=== PATIENT | male | born 1960 | race African-American/Black ===

== ENCOUNTER 2016-12-18 10:05 | Inpatient (IN) | payer OTHER ==
[2016-12-18 14:03] VITALS: BMI 21.1
--- NOTE | 2016-12-18 14:57 | HP ---
CIWA Score - CIWA Score Nausea/Vomitin Muscle Tremors: 3 Anxiety: 3 Agitation: 3 Paroxysmal Sweats: 1-Minimal Palms Moist Orientation: 0-Oriented Tacttile Disturbances: 2-Mild Itch/Numbness/Burn Auditory Disturbances: 2-Mild Harshness/Frighten Visual Disturbances: 2-Mild Sensitivity Headache: 2-Mild CIWA-Ar Total Score: 21 Admission ROS BHS - HPI Chief Complaint: i need help to stop drinking alcohol and cocaine Allergies/Adverse Reactions: Allergies Allergy/AdvReac Type Severity Reaction Status Date / Time No Known Allergies Allergy Verified 12/18/16 14:52 History of Present Illness: this 56 years old male with alcohol and cocaine dependence,seeking help for detox,last treatment 03/15 [facility] seizure disorder last 2015 taking truvada for prevention exposure to partner longest time of sobriety 3 years nicotine dependence surgery for head injury in 1978 right Exam Limitations: No Limitations - Ebola screening Have you traveled outside of the country in the last 21 days: No Have you been sick,other than usual withdrawal symptoms: No - Review of Systems Constitutional: Loss of Appetite, Night Sweats, Changes in sleep, Weakness, Unintentional Wgt. Loss EENT: reports: Nose Congestion, Other (haed injury right s/p surgery) Respiratory: reports: No Symptoms reported Cardiac: reports: No Symptoms Reported GI: reports: Diarrhea, Nausea, Vomiting, Abdominal cramping : reports: No Symptoms Reported Musculoskeletal: reports: Back Pain, Muscle Pain Integumentary: reports: Dryness Neuro: reports: Headache, Tremors Endocrine: reports: No Symptoms Reported Hematology: reports: No Symptoms Reported Psychiatric: reports: Anxious, Depressed Patient History - Patient Medical History Hx Anemia: No Hx Asthma: No Hx Chronic Obstructive Pulmonary Disease (COPD): No Hx Cancer: No Hx Cardiac Disorders: No Hx Congestive Heart Failure: No Hx Hypertension: No Hx Hypercholesterolemia: No Hx Pacemaker: No HX Cerebrovascular Accident: No Hx Seizures: Yes (last in 2015) Hx Dementia: No Hx Diabetes: No Hx Gastrointestinal Disorders: No Hx Liver Disease: No Hx Genitourinary Disorders: No Hx Sexually Transmitted Disorders: No Hx Renal Disease (ESRD): No Hx Thyroid Disease: No Hx Human Immunodeficiency Virus (HIV): No (last tested in 09/14 negative) Hx Hepatitis C: No Hx Depression: Yes (anxiety) Hx Suicide Attempt: Yes (cutter) Hx Bipolar Disorder: No Hx Schizophrenia: No Other Medical History: no suiidal,no homicidal,taking truvada for prevention exposure,arthritis - Patient Surgical History Hx Neurologic Surgery: Yes (in 1975 post head injury ) - PPD History Previous Implant?: Yes Documented Results: Positive w/o proof Implanted On Prior [facility] Admission?: No PPD to be Administered?: No - Smoking Cessation Smoking history: Current every day smoker Have you smoked in the past 12 months: Yes Aproximately how many cigarettes per day: 5 Cigars Per Day: 0 Hx Chewing Tobacco Use: No Initiated information on smoking cessation: Yes 'Breaking Loose' booklet given: 12/18/16 - Substance & Tx. History Hx Alcohol Use: Yes Hx Substance Use: Yes Substance Use Type: Alcohol, Cocaine Hx Substance Use Treatment: Yes (02/13 [facility]) Family Disease History - Family Disease History Family Disease History: Other: Father (alcohol,), Mother (alcohol, ) Admission Physical Exam S - Vital Signs Vital Signs: Vital Signs - 24 hr 12/18/16 14:00 Temperature 97.1 F L Pulse Rate 64 Respiratory 20 Rate Blood Pressure 115/69 - Physical General Appearance: Yes: Moderate Distress, Tremorous, Irritable, Sweating, Anxious HEENTM: Yes: Normal ENT Inspection, MARY, Pharynx Normal (hearng loss left), Other (s/p surgery right post head injury in 1975 scar in right parietal area) Respiratory: Yes: Lungs Clear, Normal Breath Sounds, No Respiratory Distress Neck: Yes: Within Normal Limits, Supple, Trachea in good position Breast: Yes: Within Normal Limits Cardiology: Yes: Within Normal Limits, Regular Rhythm, Regular Rate, S1, S2 Abdominal: Yes: Within Normal Limits, Normal Bowel Sounds, Non Tender, Flat, Soft Genitourinary: Yes: Within Normal Limits Back: Yes: Muscle Spasm Extremities: Yes: Within Normal Limits, Normal Range of Motion, Tremors Neurological: Yes: optimization engineer II-XII NML intact, Alert, Motor Strength 5/5, Other ( scar in right parietal area) Integumentary: Yes: Dry Lymphatic: Yes: Within Normal Limits - Diagnostic (1) Alcohol dependence with uncomplicated withdrawal Current Visit: Yes Status: Acute (2) Cocaine dependence Current Visit: Yes Status: Acute (3) Nicotine dependence Current Visit: Yes Status: Acute (4) Head injury Current Visit: Yes Status: Acute (5) H/O craniotomy Current Visit: Yes Status: Acute (6) Seizure disorder Current Visit: Yes Status: Acute (7) Weight loss Current Visit: Yes Status: Acute (8) Positive PPD, treated Current Visit: Yes Status: Acute (9) Anxiety and depression Current Visit: Yes Status: Acute (10) Arthritis of right knee Current Visit: Yes Status: Acute Cleared for Admission BHS - Detox or Rehab S Level of Care: Medically Managed (patient stated his hiv is negative last tested in 09/14 but takng truvada 1 tab po daily for preventive for exposure) Detox Regimen/Protocol: Librium BHS Breath Alcohol Content Breath Alcohol Content: 0 Urine Drug Screen - Results Drug Screen Negative: No Urine Drug Screen Results: KELLY-Cocaine, BAR-Barbiturates
[2016-12-18] MEDS ORDERED: P-EPHED 60MG/TRIPROLIDI 2.5MG TABLET PO PRN (15:28)
[2016-12-18] MEDS ORDERED: MENTHOL/PHENOL 1 EACH UD MM PRN (15:28)
[2016-12-18] MEDS ORDERED: LOPERAMIDE HCL 2 MG CAPSULE PO PRN (15:28)
[2016-12-18] MEDS ORDERED: MAG HYDROX/AL HYDROX/SIMETH 30 ML UNIT-DOSE CUP PO PRN (15:28)
[2016-12-18] MEDS ORDERED: diphenhydrAMINE HCL 50 MG CAPSULE PO PRN (15:28)
[2016-12-18] MEDS ORDERED: MAGNESIUM CITRATE 300 ML BOTTLE PO PRN (15:28)
[2016-12-18] MEDS ORDERED: ACETAMINOPHEN 325 MG TABLET (FP) PO PRN (15:28)
[2016-12-18] MEDS ORDERED: guaiFENesin/D-METHORPHAN HB 10 ML UNIT-DOSE CUPS PO PRN (15:28)
[2016-12-18] MEDS ORDERED: chlordiazePOXIDE HCL 25 MG CAPSULE PO PRN (15:28)
[2016-12-18] MEDS ORDERED: MAGNESIUM HYDROX 2400MG/30ML ORAL SUSPENSION 30 ML CUP PO PRN (15:28)
[2016-12-18] MEDS ORDERED: hydrOXYzine PAMOATE 25 MG CAPSULE (FP) PO PRN (15:28)
[2016-12-18] MEDS ORDERED: IBUPROFEN 400 MG TABLET (FP) PO PRN (15:28)
[2016-12-18] MEDS ORDERED: chlordiazePOXIDE HCL 25 MG CAPSULE PO ONE (16:15)
[2016-12-18] MEDS: NICOTINE 21 MG/24 HOURS TOPICAL PATCH TD SCH (17:02)
[2016-12-18] MEDS: chlordiazePOXIDE HCL 25 MG CAPSULE PO SCH ×2 (17:03→22:09)
[2016-12-18 20:59] LABS: HIV 1 & 2 AB NEGATIVE; HIV 1 AGp24 NEGATIVE
[2016-12-18] MEDS: PHENYTOIN NA EXTENDED 100 MG CAPSULE (FP) PO SCH (22:08)
[2016-12-18] MEDS: THIAMINE HCL 100 MG TABLET (FP) PO SCH (22:08)
[2016-12-18 22:44] LABS: URINE APPEARANCE CLEAR; URINE BILIRUBIN NEGATIVE (NEGATIVE); URINE BLOOD NEGATIVE (NEGATIVE); URINE COLOR LTYELLOW; URINE GLUCOSE (UA) NEGATIVE (NEGATIVE); URINE KETONE NEGATIVE (NEGATIVE); URINE LEUK ESTERASE NEGATIVE (NEGATIVE); URINE NITRITE NEGATIVE (NEGATIVE); URINE PROTEIN NEGATIVE (NEGATIVE); URINE UROBILINOGEN NEGATIVE mg/dL (0.2-1.0)
[2016-12-19] MEDS: PHENYTOIN NA EXTENDED 100 MG CAPSULE (FP) PO SCH ×3 (05:44→22:55)
[2016-12-19] MEDS: chlordiazePOXIDE HCL 25 MG CAPSULE PO SCH ×4 (06:02→22:55)
[2016-12-19] MEDS: PRENATAL VITAMINS W/ FOLIC ACID TABLET (FP) PO SCH (10:04)
[2016-12-19] MEDS: EMTRICITABINE 200MG/TENOFOVIR 300MG PO SCH (10:06)
[2016-12-19] MEDS: NICOTINE 21 MG/24 HOURS TOPICAL PATCH TD SCH (10:06)
[2016-12-19 11:06] LABS: MCH 33.8 pg (25.7-33.7); MCHC 33.5 g/dl (32.0-35.9); MEAN CELL VOLUME 100.8 fl (80-96); PLATELET COUNT 177 K/MM3 (134-434); WHITE BLOOD COUNT 4.5 K/mm3 (4.0-10.0)
--- NOTE | 2016-12-19 11:06 | CONSULT ---
[facility] Psychiatric Consult - Data Date of interview: 12/19/16 Admission source: [facility] Identifying data: First admission to [facility] for this 56 y/o AA male seeking deox treatment on for alcohol,marijuana and crack dependence.Patient is single,a father of two,domiciled,unemployed and supported on Public Assistance. Substance Abuse History: Patient reports an extensive history of substance abuse from age 10 (alcohol and marijuana) and age 19 (crack/cocaine).Smokes five cigarettes daily.Last used these substances on 12/18/16. Medical History: HIV infection,arthritis,seizure disorder (on dilantin),head trauma in the past (which warranted a craniotomy),history of positive PPD ( treated) and hearing impediment (left ear). Psychiatric History: Patient admits to a history of " a few " psychiatric hospitalizations.Known to [facility] and [facility].Early onset of psychiatric disturbances (behavioral dyscontrol and learning disability).No longer remembers psychotropic medications utilized for management.Lost to OPD care for years,in spite of an admission to [facility] two years ago.Diagnosis uncertain (no recall).Mr Mark indicates that his education extends to the 11 th grade (special classes) .Patient reports a remote history of suicde attempts via " cutting ". Physical/Sexual Abuse/Trauma History: Patient denies. Additional Comment: Urine Drug Screen Results: KELLY-Cocaine, BAR- Barbiturates.Noted. Mental Status Exam - Mental Status Exam Alert and Oriented to: Time, Place, Person Cognitive Function: Good Patient Appearance: Unkempt, Disheveled Mood: Hopeful, Euthymic Affect: Appropriate, Normal Range Patient Behavior: Fatigued, Appropriate, Cooperative (friendly,well-mannered) Speech Pattern: Clear, Appropriate Voice Loudness: Normal Thought Process: Intact, Goal Oriented Thought Disorder: Not Present Hallucinations: Denies Suicidal Ideation: Denies Homicidal Ideation: Denies Insight/Judgement: Poor Sleep: Fair Appetite: Good Muscle strength/Tone: Normal Gait/Station: Normal Psychiatric Findings - Problem List ([place] 1, 2,3) (1) Alcohol dependence with uncomplicated withdrawal Current Visit: Yes Status: Acute (2) Cocaine dependence Current Visit: Yes Status: Acute (3) Nicotine dependence Current Visit: Yes Status: Acute (4) Arthritis of right knee Current Visit: Yes Status: Chronic (5) H/O craniotomy Current Visit: No Status: Resolved (6) Positive PPD, treated Current Visit: No Status: Resolved - Initial Treatment Plan Initial Treatment Plan: Psychoeducation.Detoxification.Seizures precautions.Observation.
[2016-12-19 11:11] LABS: ALBUMIN 3.9 g/dl (3.4-5.0); ALK PHOS 119 U/L (45-117); ANION GAP 7 (8-16); BILIRUBIN,TOTAL 0.3 mg/dL (0.2-1.0); CO2 29 mmol/L (21-32); CREATININE 1.4 mg/dL (0.7-1.3); GLUCOSE,RANDOM 110 mg/dL (74-106); SGOT/AST 25 U/L (15-37); SGPT/ALT 25 U/L (12-78); TOT PROT 7.6 g/dl (6.4-8.2)
--- NOTE | 2016-12-19 13:36 | PN ---
[facility] CIWA - CIWA Score Nausea/Vomitin-No Nausea/No Vomiting Muscle Tremors: 4-Moderate,w/Arms Extend Anxiety: 4-Mod. Anxious/Guarded Agitation: 3 Paroxysmal Sweats: 3 Orientation: 0-Oriented Tacttile Disturbances: 0-None Auditory Disturbances: 2-Mild Harshness/Frighten Visual Disturbances: 2-Mild Sensitivity Headache: 0-None Present CIWA-Ar Total Score: 18 S Progress Note (SOAP) Subjective: Tremors, Sweating, Interrupted sleep. Objective: PT. A & O X 3. NO ACUTE DISTRESS. 12/19/16 13:33 Vital Signs Temperature 96.5 F L 12/19/16 10:00 Pulse Rate 64 12/19/16 10:00 Respiratory Rate 18 12/19/16 10:00 Blood Pressure 91/64 12/19/16 10:00 O2 Sat by Pulse Oximetry (%) Laboratory Tests 12/18/16 12/18/16 12/19/16 14:50 16:15 06:00 WBC 4.5 RBC 4.28 Hgb 14.5 Hct 43.2 MCV 100.8 H MCH 33.8 H MCHC 33.5 RDW 14.0 Plt Count 177 MPV 9.0 Sodium Potassium Chloride Carbon Dioxide Anion Gap BUN Creatinine Creat Clearance w eGFR Random Glucose Calcium Total Bilirubin AST ALT Alkaline Phosphatase Total Protein Albumin Urine Color Ltyellow Urine Appearance Clear Urine pH 5.0 Ur Specific [place] 1.025 Urine Protein Negative Urine Glucose (UA) Negative Urine Ketones Negative Urine Blood Negative Urine Nitrite Negative Urine Bilirubin Negative Urine Urobilinogen Negative Ur Leukocyte Esterase Negative HIV 1&2 Antibody Screen Negative HIV P24 Antigen Negative 12/19/16 06:00 WBC RBC Hgb Hct MCV MCH MCHC RDW Plt Count MPV Sodium 142 Potassium 4.1 Chloride 106 Carbon Dioxide 29 Anion Gap 7 L BUN 20 H Creatinine 1.4 H Creat Clearance w eGFR 52.05 Random Glucose 110 H Calcium 9.0 Total Bilirubin 0.3 AST 25 ALT 25 Alkaline Phosphatase 119 H Total Protein 7.6 Albumin 3.9 Urine Color Urine Appearance Urine pH Ur Specific [place] Urine Protein Urine Glucose (UA) Urine Ketones Urine Blood Urine Nitrite Urine Bilirubin Urine Urobilinogen Ur Leukocyte Esterase HIV 1&2 Antibody Screen HIV P24 Antigen LABS NOTED. RPR RESULT PENDING. 12/19/16 13:35 Assessment: 12/19/16 13:34 WITHDRAWAL SYMPTOMS. Plan: CONTINUE DETOX. D/C MAGNESIUM-CONTAINING MEDS. DUE TO ABNORMAL ADMISSION RENAL LAB VALUES.
[2016-12-19] MEDS: THIAMINE HCL 100 MG TABLET (FP) PO SCH (22:56)
[2016-12-20] MEDS: chlordiazePOXIDE HCL 25 MG CAPSULE PO SCH ×2 (05:27→10:18)
[2016-12-20] MEDS: PHENYTOIN NA EXTENDED 100 MG CAPSULE (FP) PO SCH ×3 (05:27→22:06)
[2016-12-20] MEDS: EMTRICITABINE 200MG/TENOFOVIR 300MG PO SCH (10:16)
[2016-12-20] MEDS: PRENATAL VITAMINS W/ FOLIC ACID TABLET (FP) PO SCH (10:16)
[2016-12-20] MEDS: NICOTINE 21 MG/24 HOURS TOPICAL PATCH TD SCH (10:16)
--- NOTE | 2016-12-20 13:26 | PN ---
[facility] CIWA - CIWA Score Nausea/Vomitin Muscle Tremors: 4-Moderate,w/Arms Extend Anxiety: 3 Agitation: 3 Paroxysmal Sweats: No Perspiration Orientation: 0-Oriented Tacttile Disturbances: 1-Very Mild Itch/Numbness Auditory Disturbances: 0-None Visual Disturbances: 0-None Headache: 2-Mild CIWA-Ar Total Score: 16 S Progress Note (SOAP) Subjective: Nausea, tremor, chills, sweating, anxious Objective: 12/20/16 13:23 Last Vital Signs Temp Pulse Resp BP Pulse Ox 97.0 F L 62 18 94/65 12/20/16 10:00 12/20/16 10:00 12/20/16 10:00 12/20/16 10:00 Noted with hypotension Laboratory Tests 12/18/16 12/18/16 12/19/16 14:50 16:15 06:00 WBC 4.5 RBC 4.28 Hgb 14.5 Hct 43.2 MCV 100.8 H MCH 33.8 H MCHC 33.5 RDW 14.0 Plt Count 177 MPV 9.0 Sodium Potassium Chloride Carbon Dioxide Anion Gap BUN Creatinine Creat Clearance w eGFR POC Glucometer Random Glucose Calcium Total Bilirubin AST ALT Alkaline Phosphatase Total Protein Albumin Urine Color Ltyellow Urine Appearance Clear Urine pH 5.0 Ur Specific [place] 1.025 Urine Protein Negative Urine Glucose (UA) Negative Urine Ketones Negative Urine Blood Negative Urine Nitrite Negative Urine Bilirubin Negative Urine Urobilinogen Negative Ur Leukocyte Esterase Negative RPR Titer HIV 1&2 Antibody Screen Negative HIV P24 Antigen Negative 12/19/16 12/19/16 12/20/16 06:00 06:00 05:29 WBC RBC Hgb Hct MCV MCH MCHC RDW Plt Count MPV Sodium 142 Potassium 4.1 Chloride 106 Carbon Dioxide 29 Anion Gap 7 L BUN 20 H Creatinine 1.4 H Creat Clearance w eGFR 52.05 POC Glucometer 91 Random Glucose 110 H Calcium 9.0 Total Bilirubin 0.3 AST 25 ALT 25 Alkaline Phosphatase 119 H Total Protein 7.6 Albumin 3.9 Urine Color Urine Appearance Urine pH Ur Specific [place] Urine Protein Urine Glucose (UA) Urine Ketones Urine Blood Urine Nitrite Urine Bilirubin Urine Urobilinogen Ur Leukocyte Esterase RPR Titer Nonreactive HIV 1&2 Antibody Screen HIV P24 Antigen Labs noted: BUN 20, serum creatinine 1.4 Assessment: 12/20/16 13:25 Withdrawal symptoms Noted with hypotension and prerenal azotemia Plan: Continue detox Hypotension: asymptomatic, encouraged to drink lots of water Prerenal azotemia: encouraged to drink lots of water for hydration, water pitcher ordered, repeat BMP in AM
[2016-12-20] MEDS: chlordiazePOXIDE 5 MG CAPSULE PO SCH ×2 (17:08→22:06)
[2016-12-20] MEDS: THIAMINE HCL 100 MG TABLET (FP) PO SCH (22:06)
[2016-12-21] MEDS: chlordiazePOXIDE 5 MG CAPSULE PO SCH ×2 (05:44→10:11)
[2016-12-21] MEDS: PHENYTOIN NA EXTENDED 100 MG CAPSULE (FP) PO SCH ×3 (05:44→22:01)
[2016-12-21 09:58] LABS: ANION GAP 6 (8-16); CO2 26 mmol/L (21-32); GLUCOSE,RANDOM 92 mg/dL (74-106)
[2016-12-21] MEDS: PRENATAL VITAMINS W/ FOLIC ACID TABLET (FP) PO SCH (10:10)
[2016-12-21] MEDS: EMTRICITABINE 200MG/TENOFOVIR 300MG PO SCH (10:10)
[2016-12-21] MEDS: NICOTINE 21 MG/24 HOURS TOPICAL PATCH TD SCH (10:12)
--- NOTE | 2016-12-21 11:47 | PN ---
[facility] Progress Note (SOAP) Subjective: Sweating. Patient reporting growth on the posterior aspect of neck X several months. Patient reports discomfort at site, but denies any bleeding or unusual discharge at site. Patient denies any unusual growths anywhere else on his body. Objective: PT. A & O X 2 (DISORIENTED ABOUT DAY / DATE). PT. OBSERVED AMBULATING ON UNIT. NO ACUTE DISTRESS. 12/21/16 11:43 Vital Signs Temperature 97.5 F L 12/21/16 09:12 Pulse Rate 60 12/21/16 09:12 Respiratory Rate 18 12/21/16 09:12 Blood Pressure 97/67 12/21/16 09:12 O2 Sat by Pulse Oximetry (%) Laboratory Tests 12/18/16 12/18/16 12/18/16 14:50 15:09 16:15 WBC RBC Hgb Hct MCV MCH MCHC RDW Plt Count MPV Sodium Potassium Chloride Carbon Dioxide Anion Gap BUN Creatinine Creat Clearance w eGFR POC Glucometer 129 Random Glucose Calcium Total Bilirubin AST ALT Alkaline Phosphatase Total Protein Albumin Urine Color Ltyellow Urine Appearance Clear Urine pH 5.0 Ur Specific [place] 1.025 Urine Protein Negative Urine Glucose (UA) Negative Urine Ketones Negative Urine Blood Negative Urine Nitrite Negative Urine Bilirubin Negative Urine Urobilinogen Negative Ur Leukocyte Esterase Negative RPR Titer HIV 1&2 Antibody Screen Negative HIV P24 Antigen Negative 12/19/16 12/19/16 12/19/16 06:00 06:00 06:00 WBC 4.5 RBC 4.28 Hgb 14.5 Hct 43.2 MCV 100.8 H MCH 33.8 H MCHC 33.5 RDW 14.0 Plt Count 177 MPV 9.0 Sodium 142 Potassium 4.1 Chloride 106 Carbon Dioxide 29 Anion Gap 7 L BUN 20 H Creatinine 1.4 H Creat Clearance w eGFR 52.05 POC Glucometer Random Glucose 110 H Calcium 9.0 Total Bilirubin 0.3 AST 25 ALT 25 Alkaline Phosphatase 119 H Total Protein 7.6 Albumin 3.9 Urine Color Urine Appearance Urine pH Ur Specific [place] Urine Protein Urine Glucose (UA) Urine Ketones Urine Blood Urine Nitrite Urine Bilirubin Urine Urobilinogen Ur Leukocyte Esterase RPR Titer Nonreactive HIV 1&2 Antibody Screen HIV P24 Antigen 12/20/16 12/21/16 05:29 06:30 WBC RBC Hgb Hct MCV MCH MCHC RDW Plt Count MPV Sodium 138 Potassium 4.1 Chloride 106 Carbon Dioxide 26 Anion Gap 6 L BUN 15 D Creatinine 1.0 D Creat Clearance w eGFR POC Glucometer 91 Random Glucose 92 Calcium 9.0 Total Bilirubin AST ALT Alkaline Phosphatase Total Protein Albumin Urine Color Urine Appearance Urine pH Ur Specific [place] Urine Protein Urine Glucose (UA) Urine Ketones Urine Blood Urine Nitrite Urine Bilirubin Urine Urobilinogen Ur Leukocyte Esterase RPR Titer HIV 1&2 Antibody Screen HIV P24 Antigen LABS NOTED. RESULT OF BMP DRAWN EARLIER THIS AM NOTED. 12/21/16 11:47 Assessment: 12/21/16 11:44 WITHDRAWAL SYMPTOMS. Plan: CONTINUE DETOX. PATIENT REPORTS THAT HE DOES CURRENTLY HAVE A PRIMARY CARE MEDICAL PROVIDER ( [place]UA [place]). PATIENT ADVISED TO FOLLOW-UP WITH MEDICAL PROVIDER FOR GROWTH ON NECK SOON POSSIBLE AFTER DISCHARGE FROM DETOX.
--- NOTE | 2016-12-21 12:02 | EKG ---
Test Reason : Blood Pressure : / mmHG Vent. Rate : 045 BPM Atrial Rate : 045 BPM P-R Int : 120 ms QRS Dur : 094 ms QT Int : 480 ms P-R-T Axes : 086 079 076 degrees QTc Int : 415 ms SINUS BRADYCARDIA OTHERWISE NORMAL ECG NO PREVIOUS ECGS AVAILABLE Confirmed by FELY ANDRADE MD ([id number]) on 12/21/2016 12:02:00 PM Referred By: Confirmed By:FELY ANDRADE MD
[2016-12-21] MEDS: chlordiazePOXIDE HCL 10 MG CAPSULE PO SCH ×2 (17:24→22:01)
[2016-12-21] MEDS: THIAMINE HCL 100 MG TABLET (FP) PO SCH (22:01)
[2016-12-22] MEDS: PHENYTOIN NA EXTENDED 100 MG CAPSULE (FP) PO SCH (05:53)
[2016-12-22] MEDS: chlordiazePOXIDE HCL 10 MG CAPSULE PO SCH (05:53)
[2016-12-22 06:38] VITALS: BP 99/68; PULSE 67; TEMP 97.1
--- NOTE | 2016-12-22 12:20 | DS ---
[facility] Detox Discharge Summary Admission Date: 12/18/16 Discharge Date: 12/22/16 - History Present History: Alcohol Dependence Additional Comments: DETOX COMPLETED. ALERT O X 3. NAD. PT INSTRUCTED TO FOLLOW UP WITH HIS PMD DR. MARKS AT [address] [place] [address] FOR MEDICAL MANAGEMENT NEEDED. Pertinent Past History: ARTHRITIS HX HEAD INJURY SEIZURE DISORDER HYPOVITAMINOSIS D - Physical Exam Results Vital Signs: Vital Signs Temperature 97.1 F L 12/22/16 06:38 Pulse Rate 67 12/22/16 06:38 Respiratory Rate 16 12/22/16 06:38 Blood Pressure 99/68 12/22/16 06:38 O2 Sat by Pulse Oximetry (%) - Treatment Hospital Course: Detox Protocol Followed, Detoxed Safely, Responded well, Discharged Condition Good, Rehab Referral Accepted Patient has Accepted a Rehab Referral to: [facility] - Medication Discharge Medications: Ambulatory Orders Emtricitabine/Tenofovir [Truvada] 1 tab PO DAILY 12/18/16 Multivitamin [Poly-Vitamin] 1 each PO DAILY 12/18/16 Phenytoin Na Extended [Dilantin -] 100 mg PO TID 12/18/16 - Diagnosis (1) Alcohol dependence with uncomplicated withdrawal Status: Acute (2) Nicotine dependence Status: Acute Qualifiers: Nicotine product type: cigarettes Substance use status: in withdrawal Qualified Code(s): F17.213 - Nicotine dependence, cigarettes, with withdrawal (3) Seizure disorder Status: Chronic (4) Weight loss Status: Chronic (5) Arthritis of right knee Status: Chronic (6) Cocaine dependence Status: Acute Qualifiers: Substance use status: uncomplicated Qualified Code(s): F14.20 - Cocaine dependence, uncomplicated - AMA Did Patient Leave Against Medical Advice: No
== END 2016-12-22 08:49 | disposition home or self-care (01) | DRG 774 ==
LOC: YASAS 10:05 → Y3N 15:59
PROVIDERS: ADMIT Internal Medicine Addiction Medicine; ATTEND Internal Medicine Addiction Medicine
PROC: HZ2ZZZZ Detoxification Services for Substance Abuse Treatment (ICD-10-PCS; principal; 2016-12-22)
DX: F10.230 Alcohol dependence with withdrawal, uncomplicated (principal); F14.20 Cocaine dependence, uncomplicated; F17.213 Nicotine dependence, cigarettes, with withdrawal; F41.8 Other specified anxiety disorders; G40.909 Epilepsy, unspecified, not intractable, without status epilepticus; M13.862 Other specified arthritis, left knee; M13.861 Other specified arthritis, right knee; Z68.21 Body mass index [BMI] 21.0-21.9, adult; R63.4 Abnormal weight loss; R76.11 Nonspecific reaction to tuberculin skin test without active tuberculosis; H91.92 Unspecified hearing loss, left ear
CPT/HCPCS: 36415; 71020-TC; 80048; 80053; 81003; 85027; 86593; 87389; 93005; 93010